=== PATIENT | male | born 1970 | race Caucasian/White ===

== ENCOUNTER 2019-02-23 11:11 | Emergency (ER) | payer OTHER ==
[2019-02-23 11:17] VITALS: BMI 39.9
[2019-02-23] MEDS ORDERED: ACETAMINOPHEN 1000 MG/100 ML VIAL (NON FORMULARY) IVPB ONE (11:18)
--- NOTE | 2019-02-23 11:35 | PDOC ---
History of Present Illness - General Chief Complaint: Headache Stated Complaint: headache Time Seen by Provider: 02/23/19 11:18 - History of Present Illness Initial Comments: 02/23/19 12:23 49 years old past medical history significant for poorly controlled hypertension on 2 medications presents to the ED with mild headache for the last 2 days and elevated blood pressure. Patient states he normally has similar headaches each morning when he wakes up. He normally takes his daily blood pressure medications and the headaches resolve. Yesterday he woke up with a dull mild headache for 5 out of 10 not maximal at onset not associated with any photophobia neck stiffness or nausea vomiting took his blood pressure medications but the headache did not resolve today had same symptomatology try to go to work but felt generally unwell with the same headache not any worse again did not resolve with his home blood pressure medications and presented to the emergency department symptoms are moderate persistent constant no exacerbation with exertion no alleviating factors. Past History - Past Medical History Allergies/Adverse Reactions: Allergies Allergy/AdvReac Type Severity Reaction Status Date / Time No Known Allergies Allergy Verified 02/23/19 11:12 Home Medications: Ambulatory Orders Losartan Potassium [Cozaar] 100 mg PO DAILY 02/23/19 Metoprolol Succinate [Toprol Xl] 100 mg PO DAILY 02/23/19 CVA: No COPD: No CHF: No HTN: Yes - Suicide/Smoking/Psychosocial Hx Smoking History: Never smoked Hx Alcohol Use: No Drug/Substance Use Hx: No Review of Systems - Review of Systems Comments:: 02/23/19 12:24 ROS: A complete review of 10 out of 10 review of systems is taken and is negative apart from what is previously mentioned below and in the HPI. *Physical Exam - Vital Signs Last Vital Signs Temp Pulse Resp BP Pulse Ox 98.1 F 76 19 198/132 H 99 02/23/19 11:13 02/23/19 11:13 02/23/19 11:13 02/23/19 11:13 02/23/19 11:13 - Physical Exam Comments: 02/23/19 12:24 Vitals: Triage Vital signs reviewed General Appearance: no acute distress, well nourished well developed, Head: Atraumatic, Eyes: Pupils equal reactive round, extraocular movement intact Neck: Supple;No Nucal rigidity Chest Wall: Nontender Cardiac: Regular rate and rhythym, no murmurs, no rubs, no gallops, Lungs: Clear to auscultation bilateral, good air movement bilaterally, Abdomen: Soft, non distended, normal bowel sounds, non tender to palpation Extremities: Full range of motion to all extremities, no cyanosis, clubbing, or edema Skin: Warm and dry, no rashes or lesions, no rash, no petechiae Neuro: AOX3; Cranial Nerves 2-12 grossly intact, Strength intact to all extremities, Sensation intact to all extremities,gait normal Psych: normal mood, normal affect Heart Score/ECG Review - ECG Impressions Comment:: 02/23/19 12:44 EKG performed at 1124 demonstrates normal sinus rhythm no ST elevations no T- wave inversions. Interpreted by me ED Treatment Course - LABORATORY CBC & Chemistry Diagram: 02/23/19 11:27 02/23/19 11:27 - RADIOLOGY Radiology Studies Ordered: Category Date Time Status HEAD CT WITHOUT CONTRAST [CT] Stat CT Scan 02/23/19 11:18 Ordered Medical Decision Making - Critical Care Time Total Critical Care Time (minutes): 65 Critical Care Statement: The care of this patient involved high complexity decision making to prevent further life threatening deterioration of the patient 's condition and/or to evaluate & treat vital organ system(s) failure or risk of failure. - Medical Decision Making 02/23/19 12:40 Well-appearing no significant distress blood pressure upon arrival to the emergency Department 190s over 130s IV placed IV Tylenol ordered we'll obtain stat head CT labs observe and reassess Reevaluation 12:15 PM. Received phone call from radiology CT demonstrates small amount of intraventricular and possible intraparenchymal blood Case discussed with Dr. Best neurosurgery who reviewed images. Although prominently intraventricular and intraparenchymal blood in CAT scan concern for small amount of blood in the gyrus sulcus which may be from an ACOM aneurism. Based on the small nature of this possible aneurysm recommended transfer to [facility] for definitive imaging and management Case discussed with neurosurgery at [facility] and stroke team at [facility] agree with transfer Case discussed with Dr. Reid at the [facility] emergency department agrees with transfer patient consented all questions answered at the bedside will arrange for transfer for definitive management. 20mg IV push labetolol given for BP control *DC/Admit/Observation/Transfer Diagnosis at time of Disposition: Intraventricular hemorrhage - Discharge Dispostion Disposition: TRANSFER ACUTE CARE/OTHER HOSP Condition at time of disposition: Guarded Decision to Admit order: No - Referrals - Patient Instructions - Post Discharge Activity
[2019-02-23 11:43] LABS: BASO % 1.4 % (0-2.0); EOS % 0.3 % (0-4.5); HEMATOCRIT 45.9 % (35.4-49); HEMOGLOBIN 15.1 GM/dl (11.7-16.9); LYMPH % 13.6 % (8-40); MCH 27.7 pg (25.7-33.7); MCHC 32.8 g/dl (32.0-35.9); MEAN CELL VOLUME 84.4 fl (80-96); MEAN PLT VOLUME 10.4 fl (7.5-11.1); NEUT % 79.7 % (42.8-82.8); PLATELET COUNT 276 K/MM3 (134-434); RBC 5.44 M/mm3 (4.00-5.60); RDW 14.2 % (11.9-15.9); WHITE BLOOD COUNT 9.3 K/mm3 (4.0-10.8)
[2019-02-23 11:52] LABS: ALBUMIN 4.3 g/dl (3.4-5.0); BILIRUBIN,TOTAL 1.8 mg/dl (0.2-1); CALCIUM 9.2 mg/dl (8.5-10); CREATININE 1.1 mg/dl (0.55-1.3); POTASSIUM 3.5 mmol/L (3.5-5.1); TOT PROT 7.4 g/dl (6.4-8.2)
[2019-02-23] MEDS ORDERED: ACETAMINOPHEN INJECTION 100 ML IVPB ONE (12:01)
[2019-02-23] MEDS ORDERED: LABETALOL HCL 5 MG/1 ML (100MG/20 ML VIAL) IVPUSH ONE (12:09)
[2019-02-23] MEDS ORDERED: LABETALOL HCL 5 MG/1 ML (100MG/20 ML VIAL) ONE (12:24)
[2019-02-23 13:02] LABS: ACTIVATED PTT 28.4 SECONDS (25.2-36.5)
[2019-02-23 13:04] VITALS: BP 160/97; PULSE 71; TEMP 98.9
[2019-02-23 13:06] LABS: INR 1.14 (0.82-1.09); PROTHROMBIN TIME (PATIENT) 12.7 SEC (10.2-13.0)
--- NOTE | 2019-02-24 12:08 | EKG ---
Test Reason : Blood Pressure : / mmHG Vent. Rate : 070 BPM Atrial Rate : 070 BPM P-R Int : 164 ms QRS Dur : 102 ms QT Int : 444 ms P-R-T Axes : 061 -05 056 degrees QTc Int : 479 ms NORMAL SINUS RHYTHM POSSIBLE LEFT ATRIAL ENLARGEMENT CANNOT RULE OUT ANTERIOR INFARCT , AGE UNDETERMINED ABNORMAL ECG NO PREVIOUS ECGS AVAILABLE Confirmed by Roman Yusuf ([id number]) on 02/24/2019 12:08:33 PM Referred By: MD SOW Confirmed By:Roman Yusuf
== END 2019-02-23 13:08 | disposition short-term general hospital (02) ==
LOC: FER 11:11
PROC: 3E033NZ Introduction of Analgesics, Hypnotics, Sedatives into Peripheral Vein, Percutaneous Approach (ICD-10-PCS; principal; 2019-02-23)
PROC: 3E033GC Introduction of Other Therapeutic Substance into Peripheral Vein, Percutaneous Approach (ICD-10-PCS; 2019-02-23)
DX: I61.5 Nontraumatic intracerebral hemorrhage, intraventricular (principal); I10 Essential (primary) hypertension
CPT/HCPCS: 36415; 70450-TC; 80053; 84484; 85025; 85610; 85730; 86850; 86900; 86901; 93005; 99285-25; J0131

== ENCOUNTER 2023-10-24 20:55 | Observation (INO) | payer OTHER ==
[2023-10-24] MEDS: SODIUM CHLORIDE 1,000 ML IV ONE (21:31)
[2023-10-24] MEDS ORDERED: INSULIN REGULAR HUMAN 100 UNITS/ML *VIAL ONE ×2 (21:34→22:20)
[2023-10-24] MEDS: INSULIN REGULAR HUMAN 100 UNITS/ML *VIAL IVPUSH ONE ×2 (21:36→22:35)
[2023-10-24 21:40] LABS: HEMATOCRIT 41.6 % (35.4-49); HEMOGLOBIN 14.3 G/dL (11.7-16.9); MCH 28.6 pg (25.7-33.7); MCHC 34.3 g/dl (32.0-35.9); MEAN CELL VOLUME 83.3 fl (80-96); MEAN PLT VOLUME 9.5 fl (7.5-11.1); PLATELET COUNT 192.9 10^3/uL (134-434); RBC 4.99 10^6/uL (4.00-5.60); RDW 14.7 % (11.9-15.9)
[2023-10-24 21:57] LABS: ALBUMIN 3.9 g/dl (3.4-5.0); BILIRUBIN,TOTAL 1.6 mg/dl (0.2-1); CREATININE 1.3 mg/dl (0.6-1.3); MAGNESIUM 2.1 mg/dL (1.8-2.4); PHOSPHOROUS 4.3 (2.5-4.9); POTASSIUM 3.3 mmol/L (3.5-5.1); TOT PROT 6.3 g/dl (6.4-8.2)
[2023-10-24] MEDS ORDERED: POTASSIUM CHLORIDE TABS 20 MEQ TABLET.ER (FP) PO ONE (22:24)
[2023-10-24] MEDS: POTASSIUM CHLORIDE TABS 20 MEQ TABLET.ER (FP) PO ONE ×2 (22:38→23:28)
[2023-10-24] MEDS: SODIUM CHLORIDE 0.9% 500 ML INFUS.BAG IV ONE (22:38)
[2023-10-24] MEDS ORDERED: DOCUSATE SODIUM 100 MG CAPSULE (FP) PO PRN (23:49)
[2023-10-24] MEDS ORDERED: ACETAMINOPHEN 325 MG TABLET (FP) PO PRN (23:49)
[2023-10-25 02:38] LABS: CALCIUM 9.1 mg/dL (8.5-10.1)
[2023-10-25 02:39] LABS: ALBUMIN 3.6 g/dl (3.4-5.0); BLOOD UREA NITROGEN 21.9 mg/dL (7-18)
[2023-10-25 02:42] LABS: CREATININE 1.3 mg/dL (0.55-1.3)
[2023-10-25 02:43] LABS: TOT PROT 6.9 g/dl (6.4-8.2)
[2023-10-25 02:44] LABS: BILIRUBIN,TOTAL 1.3 mg/dL (0.2-1)
[2023-10-25] MEDS: POTASSIUM CHLORIDE ORAL LIQUID 20 MEQ/15 ML PO ONE (05:30)
[2023-10-25] MEDS: KCL 10 MEQ IVPB 10 MEQ/100 ML INFUS.BAG IVPB SCH (05:30)
[2023-10-25] MEDS: INSULIN (LEVEMIR) 100 UNITS/ML UNITS SQ ONE ×2 (06:36→09:46)
[2023-10-25] MEDS: SODIUM CHLORIDE 1,000 ML IV SCH (06:43)
[2023-10-25] MEDS: INSULIN ASPART SLIDING SCALE (NOVOLOG) 1 VIAL SQ SCH (06:43)
[2023-10-25] MEDS ORDERED: ACETAMINOPHEN 325 MG TABLET (FP) PO PRN (08:06)
[2023-10-25 08:48] LABS: ALBUMIN 3.6 g/dl (3.4-5.0); BILIRUBIN,TOTAL 1.2 mg/dl (0.2-1); CALCIUM 8.8 mg/dl (8.5-10.1); CREATININE 1.1 mg/dl (0.6-1.3); POTASSIUM 3.7 mmol/L (3.5-5.1); TOT PROT 5.7 g/dl (6.4-8.2)
[2023-10-25 09:19] LABS: BASO % 0.5 % (0-2.0); EOS % 2.8 % (0-4.5); HEMATOCRIT 39.1 % (35.4-49); HEMOGLOBIN 13.5 GM/dL (11.7-16.9); LYMPH % 33.1 % (8-40); MCH 28.3 pg (25.7-33.7); MCHC 34.5 g/dl (32.0-35.9); MEAN PLT VOLUME 9.1 fl (7.5-11.1); MONO % 7.4 % (3.8-10.2); NEUT % 56.2 % (42.8-82.8); PLATELET COUNT 208 10^3/uL (134-434); RBC 4.77 M/mm3 (4.00-5.60); RDW 13.7 % (11.9-15.9); WHITE BLOOD COUNT 5.8 K/mm3 (4.0-10.0)
[2023-10-25] MEDS ORDERED: REFRIGERATED ANITBIOTICS ONE (17:42)
[2023-10-25] MEDS: ATORVASTATIN CA 10 MG TABLET (FP) PO SCH (22:23)
[2023-10-26 06:38] VITALS: RESP 18
[2023-10-26 08:37] LABS: HEMATOCRIT 38.4 % (35.4-49); HEMOGLOBIN 12.7 G/dL (11.7-16.9); MCH 28.3 pg (25.7-33.7); MCHC 33.2 g/dl (32.0-35.9); MEAN CELL VOLUME 85.3 fl (80-96); MEAN PLT VOLUME 9.2 fl (7.5-11.1); PLATELET COUNT 180.6 10^3/uL (134-434); RDW 14.9 % (11.9-15.9); WHITE BLOOD COUNT 5.1 10^3/uL (4.0-10.8)
[2023-10-26 09:09] VITALS: BP 137/78; PULSE 78; TEMP 98.6
[2023-10-26 09:26] LABS: CALCIUM 8.8 mg/dl (8.5-10.1); MAGNESIUM 1.9 mg/dL (1.8-2.4)
[2023-10-26 09:27] LABS: CHOLESTEROL 175 mg/dl (50-200); HDL CHOLESTEROL 32 mg/dl (40-60); LDL CHOLESTEROL (ONLY DFH) 111 mg/dl (5-100)
[2023-10-26] MEDS ORDERED: REFRIGERATED ANITBIOTICS ONE ×5 (10:01→12:42)
[2023-10-26 10:05] VITALS: BMI 37.7
[2023-10-26] MEDS: ASPIRIN 81 MG CHEWABLE TABLETS PO SCH (10:17)
[2023-10-26] MEDS: INSULIN (LEVEMIR) 100 UNITS/ML UNITS SQ SCH (10:19)
[2023-10-26] MEDS: POTASSIUM CHLORIDE TABS 20 MEQ TABLET.ER (FP) PO ONE (11:54)
[2023-10-26] MEDS ORDERED: INSULIN (LEVEMIR) 100 UNITS/ML UNITS SQ SCH (22:00)
== END 2023-10-26 12:35 | disposition home or self-care (01) ==
LOC: FER 20:55 → FM/S 23:38
PROVIDERS: ADMIT Internal Medicine; ATTEND Nurse Practitioner Family
PROC: 3E013VG Introduction of Insulin into Subcutaneous Tissue, Percutaneous Approach (ICD-10-PCS; principal; 2023-10-24)
PROC: 3E0337Z Introduction of Electrolytic and Water Balance Substance into Peripheral Vein, Percutaneous Approach (ICD-10-PCS; 2023-10-24)
PROC: 3E033GC Introduction of Other Therapeutic Substance into Peripheral Vein, Percutaneous Approach (ICD-10-PCS; 2023-10-24)
DX: R73.9 Hyperglycemia, unspecified (principal); R73.03 Prediabetes; I10 Essential (primary) hypertension; E87.6 Hypokalemia; E78.00 Pure hypercholesterolemia, unspecified; Z86.73 Personal history of transient ischemic attack (TIA), and cerebral infarction without residual deficits; M54.30 Sciatica, unspecified side; E66.9 Obesity, unspecified; Z84.89 Family history of other specified conditions
CPT/HCPCS: 36415; 80048; 80053; 80061; 81003; 81015; 82550; 82962; 83036; 83605; 83735; 84100; 84484; 85025; 85027; 85730; 93005; 99285-25; G0378